=== PATIENT | female | born 2000 | race Two or more races ===

== ENCOUNTER 2018-12-28 10:18 | Emergency (ER) | payer SELFPAY ==
[~2018-12-28] VITALS: Ht 157.5 cm; Wt 78.0 kg
[2018-12-28 12:48] LABS: BASO % 0.6 % (0.0-1.0); EOS # 0.1 10^3/uL (0.0-0.5); EOS % 1.1 % (0.0-3.0); HEMOGLOBIN 12.8 g/dl (12.0-15.5); LYMPH % 36.4 % (24.0-44.0); MEAN CORPUSCULAR HEMOGLOBIN 27.8 pg (27.0-33.0); MEAN CORPUSCULAR VOLUME 86.8 fl (80.0-96.0); MONO # 0.4 10^3/uL (0.0-0.8); MONO % 7.1 % (0.0-5.0); NEUTROPHILS # 2.9 10^3/uL (1.5-8.5); NEUTROPHILS % 54.6 % (36.0-66.0); PLATELET COUNT, AUTOMATED 329 10^3/uL (150-450); RED BLOOD COUNT 4.61 10^6/uL (4.00-5.40); WHITE BLOOD COUNT 5.4 10^3/uL (4.0-10.0)
[2018-12-28 13:01] LABS: APPEARANCE, URINE CLOUDY (CLEAR); BACTERIA, URINE AUTO 1+ (NEGATIVE); BILIRUBIN, URINE AUTO NEGATIVE (NEGATIVE); BLOOD, URINE BLOOD 3+ (NEGATIVE); COLOR, URINE YELLOW (YELLOW); GLUCOSE, URINE (UA) AUTO NEGATIVE (NEGATIVE); KETONE, URINE AUTO NEGATIVE (NEGATIVE); LEUKOCYTE ESTERASE, URINE AUTO 1+ (NEGATIVE); MUCUS, URINE LARGE (NEGATIVE); NITRITE, URINE AUTO NEGATIVE (NEGATIVE); PROTEIN, URINE AUTO NEGATIVE (NEGATIVE); RBC, URINE AUTO 63 /HPF (0-3); SPECIFIC GRAVITY URINE AUTO 1.023 (1.002-1.035); SQUAMOUS EPITHELIAL CELL UR AU 19 /HPF (0-6); UROBILINOGEN, URINE AUTO 0.2 mg/dL (0.0-2.0); WBC, URINE AUTO 21 /HPF (0-3)
[2018-12-28 13:33] LABS: ERYTHROCYTE SEDIMENTATION RATE 24 mm/hr (0-20)
--- NOTE | 2018-12-28 14:02 | REP ---
ENTIRE SPINE, AP AND LATERAL: AP and lateral views of the entire spine are performed. No compression fracture is seen. In the cervical region, there is mild reversal of the normal cervical lordosis. Disc spaces are well preserved. In the thoracic region, normal kyphosis is maintained. Disc spaces are unremarkable. There is mild curvature of the thoracic spine convex to the right. Posterior elements are intact. In the lumbar region, no compression fracture or malalignment is seen with normal lumbar lordosis. There is no spondylolysis or spondylolisthesis. Disc spaces are well preserved. Posterior elements are intact. There is mild curvature of the lower thoracic and lumbar spine convex to the left. Note is made of very small cervical ribs at the C7 level, bilaterally, left slightly larger than right. Electronically Signed by Bhupinder Drake MD 12/28/2018 02:13 P
[2018-12-28 14:03] VITALS: BP 135/77
[2018-12-28] MEDS ORDERED: MACR100C43 PO (14:06)
== END 2018-12-28 14:16 | disposition home or self-care (01) ==
LOC: M ED 10:18
DX: N39.0 Urinary tract infection, site not specified (principal); R20.2 Paresthesia of skin

== ENCOUNTER 2018-12-29 11:15 | Emergency (ER) | payer SELFPAY ==
[~2018-12-29] VITALS: Ht 157.5 cm; Wt 78.2 kg
[~2018-12-29 11:15] MED LIST: MACR100C43 PO
--- NOTE | 2018-12-29 12:40 | REP ---
CT of the head without contrast Indication: Peripheral paresthesias, mild headache. Comparison: None Technique: Axial CT of the head was performed without contrast. Findings: There is no visible soft tissue swelling or calvarial fracture. There is no evidence of acute intracranial hemorrhage or extra-axial fluid collection. Drake-white matter differentiation is maintained. There is no mass effect or midline shift. The basal cisterns are patent. Cerebellar tonsils are seen at the foramen magnum without definite evidence for Chiari 1. There is no hydrocephalus. The visualized paranasal sinuses and mastoid air cells are clear. Impression: No acute intracranial abnormality. Electronically Signed by Colby Black MD 12/29/2018 12:26 P
[2018-12-29 12:47] LABS: BASO % 0.5 % (0.0-1.0); EOS # 0.1 10^3/uL (0.0-0.5); EOS % 0.8 % (0.0-3.0); HEMATOCRIT 41.9 % (36.0-47.0); HEMOGLOBIN 13.7 g/dl (12.0-15.5); LYMPH # 1.6 10^3/uL (1.5-5.0); LYMPH % 20.9 % (24.0-44.0); MEAN CORPUSCULAR HEMOGLOBIN 28.7 pg (27.0-33.0); MEAN CORPUSCULAR HGB CONC 32.7 g/dl (32.0-36.5); MEAN CORPUSCULAR VOLUME 87.7 fl (80.0-96.0); MONO # 0.6 10^3/uL (0.0-0.8); MONO % 7.1 % (0.0-5.0); NEUTROPHILS # 5.5 10^3/uL (1.5-8.5); NEUTROPHILS % 70.6 % (36.0-66.0); PLATELET COUNT, AUTOMATED 336 10^3/uL (150-450); RED BLOOD COUNT 4.78 10^6/uL (4.00-5.40); WHITE BLOOD COUNT 7.7 10^3/uL (4.0-10.0)
[2018-12-29 13:12] LABS: ERYTHROCYTE SEDIMENTATION RATE 28 mm/hr (0-20)
[2018-12-29 13:32] LABS: VITAMIN B12 LEVEL 266 PG/ML (247-911)
[2018-12-29 13:51] LABS: ALBUMIN 4.3 GM/DL (3.2-5.2); ALT/SGPT 23 U/L (12-78); BILIRUBIN,DIRECT 0.1 MG/DL (0.0-0.2); BILIRUBIN,TOTAL 0.4 MG/DL (0.2-1.0); BLOOD UREA NITROGEN 9 MG/DL (7-18); C REACTIVE PROTEIN QUANTITATIV < 0.30 MG/DL (0.00-0.30); CALCIUM LEVEL 9.8 MG/DL (8.5-10.1); CARBON DIOXIDE LEVEL 26 MEQ/L (21-32); CHLORIDE LEVEL 104 MEQ/L (98-107); CREATININE FOR GFR 0.84 MG/DL (0.55-1.30); FREE T4 0.88 NG/DL (0.78-1.33); GLUCOSE, FASTING 86 MG/DL (70-100); POTASSIUM SERUM 4.1 MEQ/L (3.5-5.1); SODIUM LEVEL 138 MEQ/L (136-145); THYROID STIMULATING HORMONE 0.679 uIU/ML (0.463-3.98); TOTAL PROTEIN 8.5 GM/DL (6.4-8.2)
[2018-12-29 14:20] VITALS: BP 132/86
[2018-12-31 00:06] LABS: Lyme Disease IgG/IgM Antibodie <0.91 ISR (0.00-0.90); Lyme Disease IgM Ab Quantitati <0.80 index (0.00-0.79)
== END 2018-12-29 14:23 | disposition home or self-care (01) ==
LOC: M ED 11:15
DX: R20.2 Paresthesia of skin (principal)